=== PATIENT | female | born 1940 | race Caucasian/White ===

== ENCOUNTER 2017-12-28 11:42 | Emergency (ER) | payer MEDICARE ==
[~2017-12-28] VITALS: Ht 154.9 cm; Wt 60.8 kg
[2017-12-28 12:24] LABS: BASOPHILS ABSOLUTE AUTO 0.02 K/mm3 (0.00-0.23); BASOPHILS PERCENT AUTO 0 % (0-2); EOSINOPHILS ABSOLUTE AUTO 0.02 K/mm3 (0.00-0.68); EOSINOPHILS PERCENT AUTO 0 % (0-6); Hematocrit 36.5 % (33.0-51.0); Hemoglobin 12.3 g/dL (11.5-16.0); IMMATURE GRAN ABSOLUTE AUTO 0.01 K/mm3 (0.00-0.10); IMMATURE GRAN PERCENT AUTO 0 % (0-1); LYMPHOCYTES ABSOLUTE AUTO 0.59 K/mm3 (0.84-5.20); LYMPHOCYTES PERCENT AUTO 10 % (21-46); MONOCYTES ABSOLUTE AUTO 0.54 K/mm3 (0.16-1.47); MONOCYTES PERCENT AUTO 9 % (4-13); Mean Corpuscular HGB 31.1 pg (26.0-34.0); Mean Corpuscular HGB Conc 33.7 g/dL (31.5-36.5); Mean Corpuscular Volume 92 fL (80-100); Mean Platelet Volume 12.1 fL (9.1-12.4); NEUTROPHILS ABSOLUTE AUTO 4.71 K/mm3 (1.96-9.15); NEUTROPHILS PERCENT AUTO 80 % (41-73); Platelet Count 80 K/mm3 (150-400); RDW Coefficient Variation 14.1 % (11.7-14.2); RDW Standard Deviation 47.8 fL (35.1-46.3); Red Blood Cell Count 3.96 M/mm3 (3.80-5.20); White Blood Cell Count 5.89 K/mm3 (4.00-11.30)
[2017-12-28 12:41] LABS: Alanine Aminotransfer (ALT/SGP 21 U/L (12-78); Albumin, Blood 3.4 g/dL (3.4-5.0); Albumin/Globulin Ratio 0.9 (0.8-1.8); Alk Phos 65 U/L (50-136); Anion Gap 9 mmol/L (6-16); Aspartate Aminotrans (AST/SGOT 27 U/L (12-37); Bilirubin, Total 0.7 mg/dL (0.1-1.0); Blood Urea Nitrogen 13 mg/dL (8-24); Bun/Creatinine Ratio 15.6 (12.0-20.0); CO2, Blood 24 mmol/L (21-32); Calcium, Blood 8.6 mg/dL (8.5-10.1); Chloride, Blood 107 mmol/L (98-108); Creatinine, Blood 0.83 mg/dL (0.40-1.00); Globulin, Blood 3.6 g/dL (2.2-4.0); Glomerular Filtration Rate >60 (60-); Glucose, Blood 72 mg/dL (70-99); Potassium, Blood 3.9 mmol/L (3.5-5.5); Sodium, Blood 140 mmol/L (136-145)
[2017-12-28] MEDS ORDERED: PRED1 PO (15:05)
[2017-12-28] MEDS ORDERED: LEVO-T112 MCG PO (15:05)
[2017-12-28 15:06] LABS: Source, Urine Clean Catch
[2017-12-28 15:14] LABS: Appearance, Urine Clear (Clear); Bilirubin, Urine Neg (Neg); Blood, Urine Neg (Neg); Color, Urine Yellow (P-Yellow); Glucose Qualitative, Urine Neg (Neg); Ketones, Urine 1+ (Neg); Leukocyte Esterase, Urine 1+ (Neg); Nitrite, Urine Neg (Neg); Protein, Urine Neg (Neg); Urobilinogen, Urine NORM (Normal)
[2017-12-28 15:28] LABS: Bacteria Few /hpf; Mucus Mod (0-Heavy); Red Blood Cells, Urine 0-2 /hpf (0-2); Squamous Epithelial Cells Few /hpf (Few)
[2018-01-10] MEDS ORDERED: SERT25 PO (19:22)
[2018-01-13] MEDS ORDERED: OLAN5A MM (13:35)
[2018-01-13] MEDS ORDERED: Cefpodoxime Pr100 MG PO (13:36)
== END 2017-12-28 15:45 | disposition home or self-care (01) ==
LOC: ER 11:42
PROVIDERS: Physician Assistant
DX: R41.82 Altered mental status, unspecified (principal); Z79.52 Long term (current) use of systemic steroids; Z79.899 Other long term (current) drug therapy
CPT/HCPCS: 70450; 71046; 80053; 81001; 85025; 87086; 93005; 93010; 99284

== ENCOUNTER → 2018-01-17 | Outpatient (CLI) | payer MEDICARE ==
[~2018-01-17] MED LIST: Cefpodoxime Pr100 MG PO; LEVO-T112 MCG PO; OLAN5A MM; PRED1 PO; SERT25 PO
== END | disposition home or self-care (01) ==
LOC: LAB 18:12 → LAB SHORT 18:12
DX: N39.0 Urinary tract infection, site not specified (principal)
CPT/HCPCS: 87086

== ENCOUNTER → 2018-03-10 | Outpatient (CLI) | payer MEDICARE ==
[2018-03-10 14:02] LABS: Source, Urine Clean Catch
[2018-03-10 15:58] LABS: Appearance, Urine Clear (Clear); Bilirubin, Urine Neg (Neg); Blood, Urine 1+ (Neg); Color, Urine Yellow (P-Yellow); Glucose Qualitative, Urine Neg (Neg); Ketones, Urine Neg (Neg); Leukocyte Esterase, Urine 1+ (Neg); Nitrite, Urine Neg (Neg); Protein, Urine Neg (Neg); Urobilinogen, Urine NORM (Normal)
[2018-03-10 16:04] LABS: Bacteria Rare /hpf; Squamous Epithelial Cells Few /hpf (Few)
== END ==
LOC: LAB 14:00 → LAB SHORT 14:00
PROVIDERS: Nurse Practitioner Family
DX: R10.9 Unspecified abdominal pain (principal)
CPT/HCPCS: 81001; 87086

== ENCOUNTER → 2019-07-31 | Outpatient (CLI) | payer MEDICARE | END | disposition home or self-care (01) | LOC: LAB SHORT 19:35 → LAB 19:35 | DX: R30.0 Dysuria (principal) | CPT/HCPCS: 87077; 87086; 87186 ==

== ENCOUNTER → 2020-02-19 | Outpatient (CLI) | payer MEDICARE ==
[2020-02-19 17:06] LABS: Source, Urine Clean Catch
[2020-02-19 19:08] LABS: Appearance, Urine Clear (Clear); Bilirubin, Urine Neg (Neg); Blood, Urine 1+ (Neg); Color, Urine Yellow (P-Yellow); Glucose Qualitative, Urine Neg (Neg); Ketones, Urine Neg (Neg); Leukocyte Esterase, Urine 2+ (Neg); Nitrite, Urine Neg (Neg); Protein, Urine Neg (Neg); Urobilinogen, Urine NORM (Normal)
[2020-02-19 19:21] LABS: Bacteria Rare /hpf; Red Blood Cells, Urine 0-2 /hpf (0-2); Squamous Epithelial Cells Few /hpf (Few)
== END ==
LOC: LAB 15:00 → LAB SHORT 15:00
PROVIDERS: Obstetrics & Gynecology
DX: R32 Unspecified urinary incontinence (principal)
CPT/HCPCS: 81001; 87086

== ENCOUNTER → 2020-05-24 | Outpatient (CLI) | payer MEDICARE | END | disposition home or self-care (01) | LOC: LAB 21:23 → LAB SHORT 21:23 | DX: R41.0 Disorientation, unspecified (principal) | CPT/HCPCS: 87086 ==

== ENCOUNTER → 2021-05-11 | Outpatient (CLI) | payer MEDICARE | END | disposition home or self-care (01) | LOC: LAB SHORT 19:33 → LAB 19:33 | DX: R30.0 Dysuria (principal) | CPT/HCPCS: 87086 ==

== ENCOUNTER 2021-08-09 08:41 | Inpatient (IN) | payer OTHER, MEDICARE ==
[~2021-08-09] VITALS: Ht 154.9 cm; Wt 61.2 kg
[~2021-08-09 08:41] MED LIST changes: -LEVO-T112 MCG PO; +LEVSOD100 PO
[2021-08-09 09:30] LABS: Albumin/Globulin Ratio 0.7 (0.8-1.8); Bilirubin, Total 0.7 mg/dL (0.1-1.0); Bun/Creatinine Ratio 16.7 (12.0-20.0); Creatinine, Blood 1.26 mg/dL (0.40-1.00); Globulin, Blood 4.5 g/dL (2.2-4.0); Potassium, Blood 4.1 mmol/L (3.5-5.5); Total Protein, Blood 7.5 g/dL (6.4-8.2); Troponin I 0.039 ng/mL (0.000-0.040)
[2021-08-09 09:35] LABS: BASOPHILS ABSOLUTE AUTO 0.05 K/mm3 (0.00-0.23); BASOPHILS PERCENT AUTO 1 % (0-2); EOSINOPHILS ABSOLUTE AUTO 0.03 K/mm3 (0.00-0.68); EOSINOPHILS PERCENT AUTO 1 % (0-6); Hematocrit 40.2 % (33.0-51.0); Hemoglobin 13.3 g/dL (11.5-16.0); IMMATURE GRAN ABSOLUTE AUTO 0.04 K/mm3 (0.00-0.10); IMMATURE GRAN PERCENT AUTO 1 % (0-1); LYMPHOCYTES ABSOLUTE AUTO 1.06 K/mm3 (0.84-5.20); LYMPHOCYTES PERCENT AUTO 17 % (21-46); MONOCYTES ABSOLUTE AUTO 0.46 K/mm3 (0.16-1.47); MONOCYTES PERCENT AUTO 7 % (4-13); Mean Corpuscular HGB 30.9 pg (26.0-34.0); Mean Corpuscular HGB Conc 33.1 g/dL (31.5-36.5); Mean Corpuscular Volume 94 fL (80-100); NEUTROPHILS ABSOLUTE AUTO 4.54 K/mm3 (1.96-9.15); NEUTROPHILS PERCENT AUTO 74 % (41-73); Platelet Count 52 K/mm3 (150-400); RDW Coefficient Variation 14.4 % (11.7-14.2); RDW Standard Deviation 49.6 fL (35.1-46.3); White Blood Cell Count 6.18 K/mm3 (4.00-11.30)
[2021-08-09 09:36] LABS: Mean Platelet Volume 14.5 fL (9.1-12.4)
[2021-08-09] MEDS ORDERED: DIPATR PO (10:44)
[2021-08-09] MEDS ORDERED: CEFPODOXIME PR100 MG PO (14:33)
[2021-08-09] MEDS ORDERED: OMEP20ER PO (15:34)
[2021-08-09] MEDS ORDERED: MULVITA PO (15:35)
[2021-08-09] MEDS ORDERED: CALCIUM MAGNES1 EAC1 PO (15:35)
[2021-08-09] MEDS ORDERED: CIDAFLEX TABLE1 EACH PO (15:36)
[2021-08-09] MEDS ORDERED: LUTEIN20 MG PO (15:36)
[2021-08-09] MEDS ORDERED: ACET500 PO (15:37)
[2021-08-09] MEDS ORDERED: ACET500 (15:37)
[2021-08-09] MEDS ORDERED: Vitamin D400 UNI1 PO (15:38)
[2021-08-09] MEDS ORDERED: L-LYSINE500 MG PO (15:39)
--- NOTE | 2021-08-09 18:30 | NUR ---
SHIFT SUMMARY; ASSUMED CARE FROM ED FOR ADMIT. TRANSFERS FROM ED GURNEY TO BED WITH SBA. A/A/OX4, SBA TO RESTROOM. PLEASANT AND COOPERATIVE WITH CARE. EVALUATED BY CARDIOLOGY, WILL CONTINUE TO MONITOR AND TREAT UNTIL CHANGE OF SHIFT.
[2021-08-10 04:06] LABS: Hematocrit 33.6 % (33.0-51.0); Hemoglobin 11.3 g/dL (11.5-16.0); Mean Corpuscular HGB 31.3 pg (26.0-34.0); Mean Corpuscular HGB Conc 33.6 g/dL (31.5-36.5); Mean Corpuscular Volume 93 fL (80-100); RDW Coefficient Variation 14.4 % (11.7-14.2); RDW Standard Deviation 49.5 fL (35.1-46.3); Red Blood Cell Count 3.61 M/mm3 (3.80-5.20); White Blood Cell Count 5.06 K/mm3 (4.00-11.30)
[2021-08-10 04:34] LABS: Mean Platelet Volume 13.7 fL (9.1-12.4); Platelet Count 43 K/mm3 (150-400)
[2021-08-10 04:38] LABS: Bun/Creatinine Ratio 17.5 (12.0-20.0); Calcium, Blood 8.4 mg/dL (8.5-10.1); Creatinine, Blood 1.14 mg/dL (0.40-1.00); Free Thyroxine 1.25 ng/dL (0.70-1.60); Potassium, Blood 4.1 mmol/L (3.5-5.5); Thyroid Stimulating Hormone 9.37 uIU/mL (0.360-4.800); Troponin I 0.027 ng/mL (0.000-0.040)
--- NOTE | 2021-08-10 06:12 | NUR ---
TELE: SR THROUGHOUT SHIFT. HR: 60-70'S. PT DENIES ANX, SOB, DIZZINESS. DENIES PAIN. STANDBY ASSIST TO BR. CARDIOLOGU TO REEVALUATE THIS AM. NO ISSUES OVERNIGHT.
--- NOTE | 2021-08-10 18:15 | NUR ---
SHIFT SUMMARY: PT CONTINUES A&Ox4, MAINTAINING O2 SATS >93% ON ROOM AIR, SB-SR ON MONITOR. PT CONTINUES SBA TO RESTROOM. ECHO COMPLETE TODAY. DR PAIZ RETURNS TO ROOM THIS EVENING TO DISCUSS TEST RESULTS AND PLAN OF CARE. PLAN AT THIS TIME IS POSSIBLE PACEMAKER PLACEMENT, DEPENDING ON TELEMETRY EVENTS T/OUT THE NIGHT. WILL CONTINUE TO MONITOR PT AND TREAT ACCORDINGLY UNTIL CHANGE OF SHIFT.
--- NOTE | 2021-08-11 06:28 | NUR ---
SHIFT SUMMARY PT IS ALERT AND ORIENTED X4. PT HAS NOT HAD ANY ACUTE CHANGES T/O THE NIGHT. PT DENIES CHEST PAIN OR SOB. PT YONATHAN FEELING LIGHTHEADED. PT HAS BEEN ABLE TO GET UP TO BATHROOM BY HER SELF WITHOUT ANY EPISODES. VITALS ARE STABLE, HEART RATE HASE BEEN BRADYCARDIC AT TIMES AND DENIES ANY SYMPTOMS WITH RATE. PT IS ON ROOM AIR AND SATING ABOVE 92%. CALL LIGHT IS WITHIN REACH.
[2021-08-11 07:40] LABS: BASOPHILS ABSOLUTE AUTO 0.02 K/mm3 (0.00-0.23); BASOPHILS PERCENT AUTO 1 % (0-2); EOSINOPHILS ABSOLUTE AUTO 0.07 K/mm3 (0.00-0.68); EOSINOPHILS PERCENT AUTO 2 % (0-6); Hematocrit 35.4 % (33.0-51.0); Hemoglobin 11.9 g/dL (11.5-16.0); IMMATURE GRAN ABSOLUTE AUTO 0.02 K/mm3 (0.00-0.10); IMMATURE GRAN PERCENT AUTO 1 % (0-1); LYMPHOCYTES ABSOLUTE AUTO 0.63 K/mm3 (0.84-5.20); LYMPHOCYTES PERCENT AUTO 15 % (21-46); MONOCYTES ABSOLUTE AUTO 0.39 K/mm3 (0.16-1.47); MONOCYTES PERCENT AUTO 9 % (4-13); Mean Corpuscular HGB 30.9 pg (26.0-34.0); Mean Corpuscular HGB Conc 33.6 g/dL (31.5-36.5); Mean Corpuscular Volume 92 fL (80-100); NEUTROPHILS ABSOLUTE AUTO 3.11 K/mm3 (1.96-9.15); NEUTROPHILS PERCENT AUTO 73 % (41-73); RDW Coefficient Variation 14.2 % (11.7-14.2); RDW Standard Deviation 47.9 fL (35.1-46.3); Red Blood Cell Count 3.85 M/mm3 (3.80-5.20); White Blood Cell Count 4.24 K/mm3 (4.00-11.30)
[2021-08-11 07:46] LABS: Mean Platelet Volume 13.7 fL (9.1-12.4)
[2021-08-11 07:47] LABS: Platelet Count 37 K/mm3 (150-400)
[2021-08-11 07:51] LABS: Calcium, Blood 8.5 mg/dL (8.5-10.1); Creatinine, Blood 1.06 mg/dL (0.40-1.00); Potassium, Blood 3.7 mmol/L (3.5-5.5)
--- NOTE | 2021-08-11 10:00 | NUR ---
UPDATE DR. JIANG AT BEDSIDE THIS AM FOR PROCEDURE CONSENT. PT NPO AT THIS TIME. PT REPORTS ACIS REFLUX. PHYSICIAN AWARE. ORDERS, SEE EMAR. ORDERS FOR PT TO HAVE 2 UNITS OF PLATELETS PRIOR TO PROCEDURE THIS AFTERNOON.
[2021-08-11 12:22] LABS: SARS-Cov-2 (COVID-19) PCR, MMC NEGATIVE (NEGATIVE)
--- NOTE | 2021-08-11 18:16 | NUR ---
SHIFT SUMMARY PT ALERT AND ORIENTED X 4. HR GREGG AT TIMES PRIOR TO PACER PLACEMENT. DR. PAIZ AT BEDSIDE TO CONSULT PACER PLACEMENT. PT AGREED TO PACER PLACEMENT. PT NPO THIS AM FOR PROCEDURE. PT REPORTED NO CP OR PRESSURE. PLT CRITICAL LOW, SEE EHR. 1 UNIT OF PLATELETS GIVEN PER DR. JIANG. ORDERS FOR 2 UNTIS TO BE GIVEN. BB SPOKE WITH DR. JIANG DIRECTLY, ORDERS TO ONLY GIVE ONE PRIOR TO PROCEDURE. CHERRY PITTER AWARE. ONCE PT BACK FROM PACER PLACEMENT. VSS. OXYGEN SATURAITON MAINTAINED ABOVE 95% ON RA. HR STABLE. PACED IN 60'S. BP STABLE. NO CP OR PRESSURE NOTED. SITE WNL. DRESSING C/D/I. PT REPORTS NO PAIN AT SITE. WILL CONT TO MONITOR UNTIL REPORT GIVEN TO NIGHTSHIFT RN.
--- NOTE | 2021-08-11 19:27 | NUR ---
PHYSICIAN UPDATE INFORMED PHYSICIAN THAT PT HAD NO AM LABS FOR PLATELET COUNT. ORDERS GIVEN,SEE EHR.
--- NOTE | 2021-08-11 21:37 | NUR ---
CARE ASSUMPTION PT LYING IN BED W SLING ON. O2 SATS >92% ON RM AIR. PT DENYING ANY PAIN OR NAUSEA. NS RUNNING AT 75ML/HR. PT DENYING ANY NEEDS AT THIS TIME.
[2021-08-12 03:50] LABS: BASOPHILS ABSOLUTE AUTO 0.04 K/mm3 (0.00-0.23); BASOPHILS PERCENT AUTO 1 % (0-2); EOSINOPHILS ABSOLUTE AUTO 0.05 K/mm3 (0.00-0.68); EOSINOPHILS PERCENT AUTO 1 % (0-6); Hematocrit 33.4 % (33.0-51.0); Hemoglobin 11.1 g/dL (11.5-16.0); IMMATURE GRAN ABSOLUTE AUTO 0.02 K/mm3 (0.00-0.10); IMMATURE GRAN PERCENT AUTO 0 % (0-1); LYMPHOCYTES ABSOLUTE AUTO 0.73 K/mm3 (0.84-5.20); LYMPHOCYTES PERCENT AUTO 11 % (21-46); MONOCYTES ABSOLUTE AUTO 0.48 K/mm3 (0.16-1.47); MONOCYTES PERCENT AUTO 7 % (4-13); Mean Corpuscular HGB 31.1 pg (26.0-34.0); Mean Corpuscular HGB Conc 33.2 g/dL (31.5-36.5); Mean Corpuscular Volume 94 fL (80-100); NEUTROPHILS ABSOLUTE AUTO 5.43 K/mm3 (1.96-9.15); NEUTROPHILS PERCENT AUTO 81 % (41-73); Platelet Count 52 K/mm3 (150-400); RDW Coefficient Variation 14.2 % (11.7-14.2); RDW Standard Deviation 48.1 fL (35.1-46.3); Red Blood Cell Count 3.57 M/mm3 (3.80-5.20); White Blood Cell Count 6.75 K/mm3 (4.00-11.30)
[2021-08-12 03:55] LABS: Mean Platelet Volume 13.4 fL (9.1-12.4)
[2021-08-12 04:07] LABS: Anion Gap 6 mmol/L (6-16); Blood Urea Nitrogen 19 mg/dL (8-24); Bun/Creatinine Ratio 21.5 (12.0-20.0); CO2, Blood 23 mmol/L (21-32); Calcium, Blood 8.3 mg/dL (8.5-10.1); Chloride, Blood 107 mmol/L (98-108); Creatinine, Blood 0.89 mg/dL (0.40-1.00); Glomerular Filtration Rate >60 (60-); Glucose, Blood 87 mg/dL (70-99); Sodium, Blood 136 mmol/L (136-145)
--- NOTE | 2021-08-12 05:10 | NUR ---
DIGITAL ADVERTISING SPECIALIST SUMMARY PT IS AXO X4 AND USES THE CALL LIGHT TO MAKE HER NEEDS KNOWN. PT'S BP WNL AND STABLE THIS SHIFT. TELE SHOWING PACED RYTHYM IN THE 60'S. O2 SATS >92% ON RM AIR. PT AFEBRILE THIS SHIFT. PT DENYING ANY CP OR PRESSURE THIS SHIFT. WILL REPORT TO ONCOMING RN.
--- NOTE | 2021-08-12 09:14 | NUR ---
PATIENT ALERT AND ORIENTED X4. NEURO WNL. PERRLA. ABLE TO MOVE ALL EXTREMITITES AND SHIFT SELF AROUND IN BED. TELE SHOWING SINUS RHYTHM PACED WITH HR 60'S. PACER PLACEMENT 08/11. DR. JIANG IN THIS AM TO CHANGE DRESSING. SMALL HEMATOMA TO LEFT ARMPIT, DR. JIANG AWARE. DENIES CHEST PAIN BUT DESCRIBES PAIN/SORENESS RELATED OT PACER PLACEMENT. MEDICATED PER EMAR. ON ROOM AIR, LUNGS SONDING CLEAR. PATIENT REPORTS CHRONIC DIARRHEA. USES LOMOTIL. WNL URINATION. UP TO BATHROOM WITH 1 PERSON ASSIST. ARM SLING IN PLACE AND PATIENT EDUCATED ABOUT PACER PRECAUTIONS. PATIENT ABLE TO VERBALIZE BACK PACER PRECAUTIONS. CALL LIGHT IN REACH. ANTIBIOTICS INFUSED THIS AM. PLAN TO DISCHARGE TODAY. WILL CONTINIUE TO MONITOR.
--- NOTE | 2021-08-12 09:52 | NUR ---
PACER INTEREGATION BEING DONE AT THIS TIME.
--- NOTE | 2021-08-12 10:03 | NUR ---
PACER INTEREGATION DONE. TECH TO TALK WITH DR. JIANG ABOUT RESULTS.
[2021-08-12] MEDS ORDERED: CEPH500 PO (11:02)
[2021-08-12] MEDS ORDERED: METO25 PO (11:04)
--- NOTE | 2021-08-12 12:38 | NUR ---
DR. JIANG BY TO CHECK ON PATIENT. PLAN TO DO PLACER INTERROGATION IN AM. NPO AFTER MIDNIGHT. PATIENT AGREEABLE TO STAY TONIGHT AND HAVE PACER INTERROGATED IN AM. PACER CLINIC FOLLOW UP APPOINTMENTS MADE AND IN CHART.
--- NOTE | 2021-08-12 17:37 | NUR ---
SHIFT SUMMARY: NO ACUTE CHANGES. PATIENT REMAIN ALERT AND ORIENTED. NO NEW CHANGES IN TELE. REMAINS ON ROOM AIR. VITAL SIGNS STABLE. TAKING PILLS WHOLE WITH WATER. EATING DINNER AT THIS TIME. PLAN FOR NPO AT MIDNIGHT. DEVICE INTERROGATION TOMORROW AM WITH DR. JIANG TO FOLLOW. LEFT CHEST WALL BRUISING WITH HEMATOMA TO LEFT ARMPIT, DESCENDING DOWN TO DELTOID. PATIENT COMPLAINS OF SORNESS/PAIN, MEDICATED PER EMAR AND ICE APPLIED. WILL CONTINUE TO MONITOR AND REPORT OFF.
--- NOTE | 2021-08-13 06:20 | NUR ---
SHIFT SUMMARY ASSUMED CARE OF PT AT 1900. PT IS A/OX4. HEART SOUNDS ARE REGULAR, TELE SHOWS PACED. LUNG SOUNDS DIMINISHED. PT HAS AN EXTENSIVE BRUIS FROM SURGICAL SITE DOWN HER L ARM. BRUISE IS SOFT BUT VERY PAINFUL. PT AWOKE THIS AM IN TEARS DUE TO PAIN, MEDICATED PER EMAR. PT C/O PAIN IN HER RIB WHEN SHE TAKES A DEEP BREATH, DENIES SOB. MEDICATED PER EMAR. PT IS INDEPENDENT TO THE BATHROOM. HAS NO OTHER COMPLAINTS OTHER THAN SHE DOESNT KNOW WHY THE DOCTOR PER SCRIBED HER SO MANY NEW MEDICATIONS. CALL LIGHT IN REACH, BED IN LOWEST POSTION.
--- NOTE | 2021-08-13 07:30 | NUR ---
UPON ASSUMING PT CARE THIS AM WAS AMBULATING IN ROOM SLING TO LT ARM WAS NEARLY OFF OF HER, PT WAS MOVING LT ARM FREELY AND USING ARM TO REPOSITION SELF. PT IS EDUCATED THAT LT ARM IS NOT TO BE USED AND THAT SHE CAN NOT BE PERFORMING FULL ROM OF ARM. PT IS VERY ANXIOUS AND EDUCATION WAS DIFFICULT FOR PT TO [place]. PT WITH EXTENSIVE BRUISING TO LT SHOULDER AND ARM, PACEMAKER SITE IS VERY TENDER TO PALPATION, PT REPORTS PAIN BELOW LT RIBCAGE. SLING IS REAPPLIED TO APPROPRIATE PLACE AND PT AGAIN EDUCATED ABOUT NOT USING HER ARM. PT C/O "REFLUX" WELL. PT REMAINS NPO
--- NOTE | 2021-08-13 09:00 | NUR ---
PT WITH ICE PACK APPLIED TO LT RIBS STS THIS IS HELPING HER PAIN. 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
--- NOTE | 2021-08-13 10:15 | NUR ---
PT TREATED WITH DILAUDID AND ZOFRAN FOR PAIN AND NAUSEA, ABD SOFT, ROUND, PT WITH CONTINUED C/O PAIN TO ABD THAT IS DECREASING WITH DIALUDID. PT HAS RETURNED FROM CT AWAITING PANEL FITTER
--- NOTE | 2021-08-13 12:56 | NUR ---
PT SLEEPING, WHEN AWAKE PT REPORTS GOOD PAIN MANAGEMENT POST DILAUDID ADMINISTRATION
--- NOTE | 2021-08-13 17:40 | NUR ---
PT WILL BE LEAVING FOR [facility] AROUND [facility]. PT HAS LT SHOULDER IMMOBIIZER IN PLACE PT EXPRESSED THAT SHE CAN FREELY MOVE ARM "I ALREADY MESSED IT UP" IMMOBILIZER WAS PLACED TO PREVENT FURTHER COMPLICATIONS TO PACEMAKER. PT IS A/O X3, SHE PRESENTS WITH A GREAT DEAL OF ANXIETY WHICH MAKES EDUCATION DIFFICULT. PT IS A SBA TO BATHROOM. SHE IS EATING WELL. REPORTS LUQ PAIN WHICH IS TREATED WELL WITH ZOFRAN AND DILAUDID. DENIES CP OR SOB. SR 70s AT THIS TIME
--- NOTE | 2021-08-13 17:58 | NUR ---
REPORT CALLED TO TUSHAR OWENS AT [facility]
== END 2021-08-13 18:40 | disposition short-term general hospital (02) | DRG 243 ==
LOC: ER 08:41 → PCU 08:42
PROVIDERS: Family Medicine; Internal Medicine Cardiovascular Disease; Physician Assistant; ADMIT Internal Medicine
PROC: 0JH606Z Insertion of Pacemaker, Dual Chamber into Chest Subcutaneous Tissue and Fascia, Open Approach (ICD-10-PCS; principal; 2021-08-11)
PROC: 02H63JZ Insertion of Pacemaker Lead into Right Atrium, Percutaneous Approach (ICD-10-PCS; 2021-08-11)
PROC: 02HK3JZ Insertion of Pacemaker Lead into Right Ventricle, Percutaneous Approach (ICD-10-PCS; 2021-08-11)
PROC: 30233R1 Transfusion of Nonautologous Platelets into Peripheral Vein, Percutaneous Approach (ICD-10-PCS; 2021-08-11)
DX: I49.5 Sick sinus syndrome (principal); D69.3 Immune thrombocytopenic purpura; N17.9 Acute kidney failure, unspecified; I97.51 Accidental puncture and laceration of a circulatory system organ or structure during a circulatory system procedure; M32.9 Systemic lupus erythematosus, unspecified; Z66 Do not resuscitate; F41.9 Anxiety disorder, unspecified; Z20.822 Contact with and (suspected) exposure to COVID-19; E89.0 Postprocedural hypothyroidism; Z96.652 Presence of left artificial knee joint; K44.9 Diaphragmatic hernia without obstruction or gangrene; Z60.2 Problems related to living alone; I25.10 Atherosclerotic heart disease of native coronary artery without angina pectoris; I95.1 Orthostatic hypotension; I48.91 Unspecified atrial fibrillation; M06.9 Rheumatoid arthritis, unspecified; Z86.711 Personal history of pulmonary embolism; Z87.11 Personal history of peptic ulcer disease; Z90.49 Acquired absence of other specified parts of digestive tract; Z90.710 Acquired absence of both cervix and uterus; Z98.890 Other specified postprocedural states; Z88.2 Allergy status to sulfonamides; Z88.5 Allergy status to narcotic agent; Z79.899 Other long term (current) drug therapy; Z79.52 Long term (current) use of systemic steroids; Y83.8 Other surgical procedures as the cause of abnormal reaction of the patient, or of later complication, without mention of misadventure at the time of the procedure; Y92.239 Unspecified place in hospital as the place of occurrence of the external cause; Z28.21 Immunization not carried out because of patient refusal
CPT/HCPCS: 33208; 36415; 36430; 71045; 71046; 71250; 71260; 76937; 80048; 80053; 82947; 84439; 84443; 84484; 85025; 85027; 85049; 85379; 86900; 86901; 93005; 93010; 93306; 99152; 99153; 99285-25; A9270; C1781; C1785; C1894; C1898; C9113; G0378; J0690; J1170; J1644; J2250; J2405; J3010; J7030; J7040; J7512; P9035; Q9967; U0004

== ENCOUNTER → 2022-07-06 | Outpatient (CLI) | payer OTHER ==
[~2022-07-06] MED LIST changes: +ACET500; +ACET500 PO; +CALCIUM MAGNES1 EAC1 PO; +CEFPODOXIME PR100 MG PO; +CEPH500 PO; +CIDAFLEX TABLE1 EACH PO; +DIPATR PO; +L-LYSINE500 MG PO; +LUTEIN20 MG PO; +METO25 PO; +MULVITA PO; +OMEP20ER PO; +Vitamin D400 UNI1 PO
== END ==
LOC: LAB SHORT 13:30 → LAB 13:30
DX: N39.0 Urinary tract infection, site not specified (principal)
CPT/HCPCS: 87086

== ENCOUNTER → 2024-01-26 | Outpatient (CLI) | payer OTHER ==
[~2024-01-26] MED LIST changes: +ALEN10 PO; +Betapace120 MG; +OXYC5 PO; +PANTOPRAZOLE SO40 M2 PO; +PRED5 PO
[2024-01-26 19:03] LABS: Free Thyroxine 1.61 ng/dL (0.70-1.60)
[2024-01-26 19:08] LABS: Thyroid Stimulating Hormone 1.99 uIU/mL (0.360-4.800)
== END ==
LOC: LAB 17:16 → LAB SHORT 17:16
PROVIDERS: Nurse Practitioner Family
DX: E03.9 Hypothyroidism, unspecified (principal)
CPT/HCPCS: 84439; 84443

== ENCOUNTER → 2025-01-14 | Outpatient (CLI) | payer OTHER ==
[2025-01-14 17:13] LABS: BASOPHILS ABSOLUTE AUTO 0.06 K/mm3 (0.00-0.23); BASOPHILS PERCENT AUTO 1 % (0-2); EOSINOPHILS ABSOLUTE AUTO 0.02 K/mm3 (0.00-0.68); EOSINOPHILS PERCENT AUTO 0 % (0-6); Hematocrit 34.6 % (33.0-51.0); Hemoglobin 11.7 g/dL (11.5-16.0); IMMATURE GRAN ABSOLUTE AUTO 0.04 K/mm3 (0.00-0.10); IMMATURE GRAN PERCENT AUTO 0 % (0-1); LYMPHOCYTES ABSOLUTE AUTO 0.49 K/mm3 (0.84-5.20); LYMPHOCYTES PERCENT AUTO 5 % (21-46); MONOCYTES ABSOLUTE AUTO 0.25 K/mm3 (0.16-1.47); MONOCYTES PERCENT AUTO 2 % (4-13); Mean Corpuscular HGB 31.7 pg (26.0-34.0); Mean Corpuscular HGB Conc 33.8 g/dL (31.5-36.5); Mean Corpuscular Volume 94 fL (80-100); NEUTROPHILS ABSOLUTE AUTO 9.78 K/mm3 (1.96-9.15); NEUTROPHILS PERCENT AUTO 92 % (41-73); Platelet Count 65 K/mm3 (150-400); RDW Coefficient Variation 14.4 % (11.7-14.2); RDW Standard Deviation 48.9 fL (35.1-46.3); Red Blood Cell Count 3.69 M/mm3 (3.80-5.20); White Blood Cell Count 10.64 K/mm3 (4.00-11.30)
[2025-01-14 17:34] LABS: Mean Platelet Volume 15.7 fL (9.1-12.4)
== END ==
LOC: LAB SHORT 16:17 → LAB 16:17
PROVIDERS: Nurse Practitioner Family
DX: E03.9 Hypothyroidism, unspecified (principal)
CPT/HCPCS: 85025